=== PATIENT | female | born 1945 | race Caucasian/White ===

== ENCOUNTER 2016-11-02 14:12 | Inpatient (IN) | payer MEDICARE, OTHER ==
[2016-11-02] MEDS ORDERED: COLACE100 M1 PO (16:26)
[2016-11-02] MEDS ORDERED: PRILOSEC OTC20 M1 PO (16:27)
[2016-11-02 16:30] LABS: ABG CO2 ARTERIAL 17 mmol/L (21-27); ARTERIAL BLD GAS O2 SATURATION 95 % (95-98); ARTERIAL BLOOD GAS PCO2 24 mmHg (32-45); ARTERIAL PO2 65 mmHg (70-100); BICARBONATE 17 mmol/L (21-28); BLOOD GAS BASE EXCESS -5 mM/L (-/+3); PH 7.46 Units (7.35-7.45)
[2016-11-02 16:35] LABS: BASO % 0.1 % (0-2); HCT-HEMATOCRIT 31.8 % (34.0-49.0); HGB-HEMOGLOBIN 10.8 gm/dl (12.0-15.5); IMMATURE GRANULOCYTES ABSOLUTE 0.15 tho/cmm (0-0.03); LYMPH % 2.6 % (20-45); LYMPH ABSOLUTE COUNT 0.4 tho/cmm (0.8-4.5); MCH (MEAN CORPUSCULAR HGB) 30.8 pg (28.0-32.0); MCV (MEAN CELL VOLUME) 90.6 fl (82.0-96.0); MEAN PLATELET VOLUME 9.5 cmc (9.4-12.4); MONO % 2.2 % (0-12); MONOCYTE ABSOLUTE COUNT 0.3 tho/cmm (0.0-1.2); NEUTROPHIL ABSOLUTE COUNT 14.1 tho/cmm (1.6-8.0); NEUTROPHIL-AUTOMATED 14.1 tho/cmm (1.6-8.0); NEUTROPHILS % 94.1 % (40-80); PLATELET COUNT 130 tho/cmm (150-450); RED BLOOD COUNT 3.51 mil/cmm (4.00-5.20); RED CELL DISTRIBUTION WIDTH 13.6 % (12.4-16.4)
[2016-11-02 16:36] LABS: INR 1.5 INR (0.9-1.1); PROTHROMBIN TIME 17.7 SECONDS (9.0-13.6)
[2016-11-02 16:49] LABS: ALB/GLOB RATIO 0.7 (0.8-2.0); ALBUMIN 2.2 g/dl (3.5-5.0); ALKALINE PHOSPHATASE 114 U/L (33-138); ALT/SGPT 14 U/L (12-78); ANION GAP 17 mmol/L (0-20); AST/SGOT 25 U/L (10-40); BILIRUBIN,TOTAL 1.4 mg/dl (0-1.5); BLOOD UREA NITROGEN 29 mg/dl (6-24); CALCIUM 7.1 mg/dl (8.5-10.5); CARBON DIOXIDE-VENOUS 19 mmol/L (22-32); CHLORIDE 108 mmol/l (96-110); CREATININE 2.58 mg/dl (0.50-1.10); GLUCOSE 267 mg/dL (70-110); POTASSIUM 3.1 mmol/L (3.7-5.1); SODIUM 141 mmol/L (135-145); eGFR VALUE FOR BLACK 21 mL/Min
[2016-11-02 17:10] LABS: PROCALCITONIN >170.00 ng/ml (0.05-0.09)
[2016-11-02 18:06] LABS: ALB/GLOB RATIO 0.7 (0.8-2.0); ALBUMIN 2.2 g/dl (3.5-5.0); BILIRUBIN,DIRECT 0.8 mg/dl (0.0-0.3); BILIRUBIN,INDIRECT 0.6 mg/dL (0.0-1.0); BILIRUBIN,TOTAL 1.4 mg/dl (0-1.5)
[2016-11-02 23:25] LABS: URINE BILIRUBIN NEGATIVE (NEG); URINE BLOOD LARGE (NEG); URINE GLUCOSE (UA) NEGATIVE (NEG); URINE KETONE NEGATIVE (NEG); URINE LEUKOCYTE ESTERASE POSITIVE (NEG); URINE NITRITE NEGATIVE (NEG); URINE PROTEIN MODERATE (NEG)
[2016-11-02 23:29] LABS: URINE APPEARANCE CLOUDY; URINE COLOR YELLOW
[2016-11-02 23:39] LABS: URINE AMORPHOUS 1+; URINE BACTERIA 1+; URINE WBC FULL FIELD /[HPF] (0-5)
[2016-11-03 00:09] LABS: MAGNESIUM 1.1 mg/dl (1.3-2.6); POTASSIUM 3.3 mmol/L (3.7-5.1)
[2016-11-03 07:39] LABS: HCT-HEMATOCRIT 36.3 % (34.0-49.0); HGB-HEMOGLOBIN 12.3 gm/dl (12.0-15.5); MCH (MEAN CORPUSCULAR HGB) 31.1 pg (28.0-32.0); MCHC MEAN CORPUSCULAR HGB CONC 33.9 % (32.0-36.0); MCV (MEAN CELL VOLUME) 91.7 fl (82.0-96.0); MEAN PLATELET VOLUME 9.7 cmc (9.4-12.4); NEUTROPHIL-AUTOMATED 10.6 tho/cmm (1.6-8.0); PLATELET COUNT 126 tho/cmm (150-450); RED BLOOD COUNT 3.96 mil/cmm (4.00-5.20); RED CELL DISTRIBUTION WIDTH 13.6 % (12.4-16.4); WHITE BLOOD COUNT 11.4 tho/cmm (4.0-10.0)
[2016-11-03 07:41] LABS: ABG CO2 ARTERIAL 16 mmol/L (21-27); ARTERIAL BLD GAS O2 SATURATION 91 % (95-98); ARTERIAL PO2 66 mmHg (70-100); BICARBONATE 15 mmol/L (21-28); BLOOD GAS BASE EXCESS -12 mM/L (-/+3)
[2016-11-03 07:43] LABS: ARTERIAL BLOOD GAS PCO2 34 mmHg (32-45); PH 7.25 Units (7.35-7.45)
[2016-11-03 08:03] LABS: ALB/GLOB RATIO 0.6 (0.8-2.0); ALBUMIN 2.3 g/dl (3.5-5.0); ALKALINE PHOSPHATASE 115 U/L (33-138); ALT/SGPT 18 U/L (12-78); ANION GAP 20 mmol/L (0-20); BILIRUBIN,TOTAL 1.1 mg/dl (0-1.5); BLOOD UREA NITROGEN 31 mg/dl (6-24); CALCIUM 7.3 mg/dl (8.5-10.5); CARBON DIOXIDE-VENOUS 15 mmol/L (22-32); CHLORIDE 116 mmol/l (96-110); CREATININE 2.59 mg/dl (0.50-1.10); MAGNESIUM 1.4 mg/dl (1.3-2.6); POTASSIUM 4.6 mmol/L (3.7-5.1); SODIUM 146 mmol/L (135-145); eGFR VALUE FOR BLACK 21 mL/Min
[2016-11-03 08:06] LABS: AST/SGOT 41 U/L (10-40); GLUCOSE 121 mg/dL (70-110)
[2016-11-03 08:15] LABS: BAND % 43 % (0-20); BAND ABSOLUTE COUNT 4.9 tho/cmm (0-2.0)
[2016-11-04 04:46] LABS: BLOOD UREA NITROGEN 28 mg/dl (6-24); CALCIUM 6.8 mg/dl (8.5-10.5); CARBON DIOXIDE-VENOUS 21 mmol/L (22-32); CHLORIDE 113 mmol/l (96-110); GLUCOSE 138 mg/dL (70-110); MAGNESIUM 1.5 mg/dl (1.3-2.6); PHOSPHOROUS 2.8 mg/dl (2.5-4.9); SODIUM 144 mmol/L (135-145)
[2016-11-04 05:19] LABS: HCT-HEMATOCRIT 29.2 % (34.0-49.0); HGB-HEMOGLOBIN 9.8 gm/dl (12.0-15.5); MCH (MEAN CORPUSCULAR HGB) 30.7 pg (28.0-32.0); MCHC MEAN CORPUSCULAR HGB CONC 33.6 % (32.0-36.0); MCV (MEAN CELL VOLUME) 91.5 fl (82.0-96.0); NEUTROPHIL-AUTOMATED 14.5 tho/cmm (1.6-8.0); RED BLOOD COUNT 3.19 mil/cmm (4.00-5.20); WHITE BLOOD COUNT 16.6 tho/cmm (4.0-10.0)
[2016-11-04 05:21] LABS: ANION GAP 14 mmol/L (0-20); C-REACTIVE PROTEIN 26.8 mg/dl (0-0.9); CREATININE 1.82 mg/dl (0.50-1.10); POTASSIUM 3.5 mmol/L (3.7-5.1); eGFR VALUE FOR BLACK 32 mL/Min
[2016-11-04 06:21] LABS: PROCALCITONIN 151.92 ng/ml (0.05-0.09)
[2016-11-04 07:25] LABS: PLATELET COUNT 66 tho/cmm (150-450)
[2016-11-04 07:27] LABS: BAND % 21 % (0-20); BAND ABSOLUTE COUNT 3.5 tho/cmm (0-2.0)
[2016-11-04 07:28] LABS: WBC MORPHOLOGY DOHLE BODIES
[2016-11-05 04:39] LABS: BASO % 0.2 % (0-2); EOS % 1.2 % (0-7); EOSINOPHIL ABSOLUTE COUNT 0.2 tho/cmm (0.0-0.7); HCT-HEMATOCRIT 30.7 % (34.0-49.0); HGB-HEMOGLOBIN 10.7 gm/dl (12.0-15.5); IMMATURE GRANULOCYTES ABSOLUTE 0.07 tho/cmm (0-0.03); IMMATURE GRANULOCYTES PERCENT 0.5 % (0-0.3); LYMPH % 11.6 % (20-45); LYMPH ABSOLUTE COUNT 1.8 tho/cmm (0.8-4.5); MCH (MEAN CORPUSCULAR HGB) 30.9 pg (28.0-32.0); MCHC MEAN CORPUSCULAR HGB CONC 34.9 % (32.0-36.0); MCV (MEAN CELL VOLUME) 88.7 fl (82.0-96.0); MEAN PLATELET VOLUME 10.4 cmc (9.4-12.4); MONOCYTE ABSOLUTE COUNT 0.5 tho/cmm (0.0-1.2); NEUTROPHILS % 83.5 % (40-80); PLATELET COUNT 95 tho/cmm (150-450); RED BLOOD COUNT 3.46 mil/cmm (4.00-5.20); RED CELL DISTRIBUTION WIDTH 13.7 % (12.4-16.4); WHITE BLOOD COUNT 15.5 tho/cmm (4.0-10.0)
[2016-11-05 05:24] LABS: CHLORIDE 112 mmol/l (96-110); SODIUM 146 mmol/L (135-145)
[2016-11-05 05:28] LABS: ALBUMIN 2.2 g/dl (3.5-5.0); ANION GAP 15 mmol/L (0-20); BLOOD UREA NITROGEN 24 mg/dl (6-24); C-REACTIVE PROTEIN 15.2 mg/dl (0-0.9); CALCIUM 7.3 mg/dl (8.5-10.5); CARBON DIOXIDE-VENOUS 22 mmol/L (22-32); CREATININE 1.43 mg/dl (0.50-1.10); GLUCOSE 98 mg/dL (70-110); PHOSPHOROUS 1.9 mg/dl (2.5-4.9); eGFR VALUE FOR BLACK 43 mL/Min
[2016-11-06 06:31] LABS: BASO % 0.4 % (0-2); EOS % 5.7 % (0-7); EOSINOPHIL ABSOLUTE COUNT 0.4 tho/cmm (0.0-0.7); HCT-HEMATOCRIT 31.6 % (34.0-49.0); HGB-HEMOGLOBIN 10.7 gm/dl (12.0-15.5); IMMATURE GRANULOCYTES ABSOLUTE 0.04 tho/cmm (0-0.03); IMMATURE GRANULOCYTES PERCENT 0.5 % (0-0.3); LYMPH % 18.3 % (20-45); LYMPH ABSOLUTE COUNT 1.4 tho/cmm (0.8-4.5); MCH (MEAN CORPUSCULAR HGB) 30.1 pg (28.0-32.0); MCHC MEAN CORPUSCULAR HGB CONC 33.9 % (32.0-36.0); MCV (MEAN CELL VOLUME) 88.8 fl (82.0-96.0); MEAN PLATELET VOLUME 10.4 cmc (9.4-12.4); MONO % 6.1 % (0-12); MONOCYTE ABSOLUTE COUNT 0.5 tho/cmm (0.0-1.2); NEUTROPHIL ABSOLUTE COUNT 5.3 tho/cmm (1.6-8.0); NEUTROPHIL-AUTOMATED 5.3 tho/cmm (1.6-8.0); PLATELET COUNT 86 tho/cmm (150-450); RED BLOOD COUNT 3.56 mil/cmm (4.00-5.20); RED CELL DISTRIBUTION WIDTH 13.7 % (12.4-16.4)
[2016-11-06 06:35] LABS: CALCIUM 7.7 mg/dl (8.5-10.5); CHLORIDE 112 mmol/l (96-110); POTASSIUM 3.6 mmol/L (3.7-5.1); SODIUM 143 mmol/L (135-145)
[2016-11-06 06:43] LABS: ALBUMIN 2.2 g/dl (3.5-5.0); ANION GAP 15 mmol/L (0-20); BLOOD UREA NITROGEN 17 mg/dl (6-24); CARBON DIOXIDE-VENOUS 20 mmol/L (22-32); CREATININE 1.17 mg/dl (0.50-1.10); GLUCOSE 134 mg/dL (70-110); MAGNESIUM 1.9 mg/dl (1.3-2.6); PHOSPHOROUS 2.1 mg/dl (2.5-4.9); WHITE BLOOD COUNT 7.6 tho/cmm (4.0-10.0); eGFR VALUE FOR BLACK 55 mL/Min
[2016-11-06 06:48] LABS: C-REACTIVE PROTEIN 7.5 mg/dl (0-0.9)
[2016-11-06 07:02] LABS: PROCALCITONIN 29.56 ng/ml (0.05-0.09)
[2016-11-07 05:19] LABS: BASO % 0.5 % (0-2); EOS % 7.2 % (0-7); EOSINOPHIL ABSOLUTE COUNT 0.5 tho/cmm (0.0-0.7); HCT-HEMATOCRIT 31.3 % (34.0-49.0); HGB-HEMOGLOBIN 10.5 gm/dl (12.0-15.5); IMMATURE GRANULOCYTES ABSOLUTE 0.05 tho/cmm (0-0.03); IMMATURE GRANULOCYTES PERCENT 0.8 % (0-0.3); LYMPH % 21.3 % (20-45); LYMPH ABSOLUTE COUNT 1.4 tho/cmm (0.8-4.5); MCH (MEAN CORPUSCULAR HGB) 30.2 pg (28.0-32.0); MCHC MEAN CORPUSCULAR HGB CONC 33.5 % (32.0-36.0); MCV (MEAN CELL VOLUME) 89.9 fl (82.0-96.0); MEAN PLATELET VOLUME 10.4 cmc (9.4-12.4); MONO % 6.6 % (0-12); MONOCYTE ABSOLUTE COUNT 0.4 tho/cmm (0.0-1.2); NEUTROPHIL ABSOLUTE COUNT 4.1 tho/cmm (1.6-8.0); NEUTROPHIL-AUTOMATED 4.1 tho/cmm (1.6-8.0); NEUTROPHILS % 63.6 % (40-80); PLATELET COUNT 104 tho/cmm (150-450); RED BLOOD COUNT 3.48 mil/cmm (4.00-5.20); RED CELL DISTRIBUTION WIDTH 13.6 % (12.4-16.4); WHITE BLOOD COUNT 6.4 tho/cmm (4.0-10.0)
[2016-11-07 06:09] LABS: PROCALCITONIN 14.77 ng/ml (0.05-0.09)
[2016-11-08 05:24] LABS: C-REACTIVE PROTEIN 2.5 mg/dl (0-0.9)
[2016-11-08 06:03] LABS: PROCALCITONIN 6.97 ng/ml (0.05-0.09)
[2016-11-09 06:21] LABS: BASO % 0.2 % (0-2); EOS % 6.4 % (0-7); EOSINOPHIL ABSOLUTE COUNT 0.6 tho/cmm (0.0-0.7); HCT-HEMATOCRIT 34.2 % (34.0-49.0); HGB-HEMOGLOBIN 11.7 gm/dl (12.0-15.5); IMMATURE GRANULOCYTES ABSOLUTE 0.17 tho/cmm (0-0.03); IMMATURE GRANULOCYTES PERCENT 1.9 % (0-0.3); LYMPH % 18.1 % (20-45); LYMPH ABSOLUTE COUNT 1.7 tho/cmm (0.8-4.5); MCH (MEAN CORPUSCULAR HGB) 30.7 pg (28.0-32.0); MCHC MEAN CORPUSCULAR HGB CONC 34.2 % (32.0-36.0); MCV (MEAN CELL VOLUME) 89.8 fl (82.0-96.0); MEAN PLATELET VOLUME 8.8 cmc (9.4-12.4); MONO % 6.6 % (0-12); MONOCYTE ABSOLUTE COUNT 0.6 tho/cmm (0.0-1.2); NEUTROPHIL ABSOLUTE COUNT 6.1 tho/cmm (1.6-8.0); NEUTROPHIL-AUTOMATED 6.1 tho/cmm (1.6-8.0); NEUTROPHILS % 66.8 % (40-80); RED BLOOD COUNT 3.81 mil/cmm (4.00-5.20); RED CELL DISTRIBUTION WIDTH 13.3 % (12.4-16.4); WHITE BLOOD COUNT 9.1 tho/cmm (4.0-10.0)
[2016-11-09 06:33] LABS: ANION GAP 8 mmol/L (0-20); BLOOD UREA NITROGEN 8 mg/dl (6-24); C-REACTIVE PROTEIN 1.8 mg/dl (0-0.9); CALCIUM 8.7 mg/dl (8.5-10.5); CARBON DIOXIDE-VENOUS 29 mmol/L (22-32); CHLORIDE 108 mmol/l (96-110); CREATININE 1.07 mg/dl (0.50-1.10); GLUCOSE 146 mg/dL (70-110); POTASSIUM 4.2 mmol/L (3.7-5.1); SODIUM 141 mmol/L (135-145); eGFR VALUE FOR BLACK 61 mL/Min
[2016-11-09 07:36] LABS: PROCALCITONIN 3.72 ng/ml (0.05-0.09)
[2016-11-09] MEDS ORDERED: NYSTOP60 GM TOP (11:45)
[2016-11-09] MEDS ORDERED: CEFTRIAXON1000 MG/VI IV (11:45)
[2016-11-09] MEDS ORDERED: ZOVIRAX30 GM TOP (11:46)
[2016-11-09] MEDS ORDERED: ASPIRIN EC81 MG PO (11:46)
[2016-11-09] MEDS ORDERED: TYLENOL325 M2 PO (11:46)
[2016-11-09] MEDS ORDERED: MIRALAX17 G2 PO (11:51)
[2016-11-09] MEDS ORDERED: CULTURELLE1 EAC1 PO (11:51)
[2016-11-09] MEDS ORDERED: GLUCOPHAGE1000 M1 PO (11:52)
[2016-11-09] MEDS ORDERED: OMEPRAZOLE40 M2 PO (11:52)
[2016-11-09 13:01] LABS: PLATELET COUNT 212 tho/cmm (150-450)
[2016-12-21] MEDS ORDERED: PRILOSEC OTC20 M1 PO (12:02)
[2016-12-21] MEDS ORDERED: NORVASC5 M2 PO (12:03)
[2016-12-21] MEDS ORDERED: BUSPIRONE HCL10 M2 PO (12:03)
[2016-12-21] MEDS ORDERED: ATIVAN0.5 M1 PO (12:03)
[2016-12-21] MEDS ORDERED: ZOLOFT50 M1 PO (12:04)
[2016-12-21] MEDS ORDERED: TRAZODONE HCL50 M1 PO (12:04)
[2016-12-21] MEDS ORDERED: NYSTATIN15 G2 TP (12:05)
[2016-12-21] MEDS ORDERED: MACROBID 100 M100 M1 PO (12:05)
== END 2016-11-09 16:15 | disposition home health service (06) | DRG 871 ==
LOC: CCU 14:12 → PCUA 11-04 16:55
PROVIDERS: Family Medicine; Internal Medicine Critical Care Medicine; Internal Medicine Infectious Disease; Physician Assistant; Registered Nurse; ADMIT Internal Medicine
PROC: 3E0F7GC Introduction of Other Therapeutic Substance into Respiratory Tract, Via Natural or Artificial Opening (ICD-10-PCS; principal; 2016-11-02)
PROC: 02HV33Z Insertion of Infusion Device into Superior Vena Cava, Percutaneous Approach (ICD-10-PCS; principal; 2016-11-02)
PROC: B548ZZA Ultrasonography of Superior Vena Cava, Guidance (ICD-10-PCS; principal; 2016-11-02)
PROC: B246ZZZ Ultrasonography of Right and Left Heart (ICD-10-PCS; principal; 2016-11-02)
DX: A41.9 Sepsis, unspecified organism (principal); J69.0 Pneumonitis due to inhalation of food and vomit; R65.21 Severe sepsis with septic shock; N17.9 Acute kidney failure, unspecified; I24.8 Other forms of acute ischemic heart disease; N13.30 Unspecified hydronephrosis; I13.10 Hypertensive heart and chronic kidney disease without heart failure, with stage 1 through stage 4 chronic kidney disease, or unspecified chronic kidney disease; E11.65 Type 2 diabetes mellitus with hyperglycemia; E78.5 Hyperlipidemia, unspecified; E87.6 Hypokalemia; F03.90 Unspecified dementia, unspecified severity, without behavioral disturbance, psychotic disturbance, mood disturbance, and anxiety; F41.9 Anxiety disorder, unspecified; E11.22 Type 2 diabetes mellitus with diabetic chronic kidney disease; N18.9 Chronic kidney disease, unspecified
CPT/HCPCS: C1729; C1751; C1769; C1894; J0696; J1650; J1815; J1956; J2060; J2175; J2250; J2405; J2543; J2997; J3010; J3370; J3475; J7030; J7040; J7050; P9045; Q9967

== ENCOUNTER 2016-12-23 07:45 | Day surgery (SDC) | payer MEDICARE, OTHER ==
[~2016-12-23 07:45] MED LIST: ASPIRIN EC81 MG PO; ATIVAN0.5 M1 PO; BUSPIRONE HCL10 M2 PO; CEFTRIAXON1000 MG/VI IV; COLACE100 M1 PO; CULTURELLE1 EAC1 PO; GLUCOPHAGE1000 M1 PO; MACROBID 100 M100 M1 PO; MIRALAX17 G2 PO; NORVASC5 M2 PO; NYSTATIN15 G2 TP; NYSTOP60 GM TOP; OMEPRAZOLE40 M2 PO; PRILOSEC OTC20 M1 PO; TRAZODONE HCL50 M1 PO; TYLENOL325 M2 PO; ZOLOFT50 M1 PO; ZOVIRAX30 GM TOP
[2016-12-23 09:13] LABS: URINE APPEARANCE CLEAR; URINE COLOR YELLOW; URINE LEUKOCYTE ESTERASE POSITIVE (NEG); URINE SPECIFIC GRAVITY 1.025 (1.003-1.030)
[2016-12-23 09:14] LABS: URINE BILIRUBIN NEGATIVE (NEG); URINE BLOOD MODERATE (NEG); URINE GLUCOSE (UA) NEGATIVE (NEG); URINE KETONE NEGATIVE (NEG); URINE NITRITE NEGATIVE (NEG); URINE PROTEIN MODERATE (NEG)
[2016-12-23 09:16] LABS: URINE BACTERIA 1+; URINE EPITHELIAL CELLS 0-2 /[HPF] (0-10)
[2016-12-23 09:17] LABS: URINE MUCUS 1+
[2016-12-23 09:22] LABS: INR 0.9 INR (0.9-1.1); PROTHROMBIN TIME 10.1 SECONDS (9.0-13.6)
== END 2016-12-23 13:10 ==
LOC: SRG 07:45 → SHSC 07:48 → ORW 10:28 → PACU 11:31 → SHSC 11:50
PROVIDERS: Urology
PROC: 0TP5X0Z Removal of Drainage Device from Kidney, External Approach (ICD-10-PCS; principal; 2016-12-23)
PROC: 0TJB8ZZ Inspection of Bladder, Via Natural or Artificial Opening Endoscopic (ICD-10-PCS; 2016-12-23)
DX: N20.1 Calculus of ureter (principal); I10 Essential (primary) hypertension; E11.9 Type 2 diabetes mellitus without complications; F41.9 Anxiety disorder, unspecified; F32.9 Major depressive disorder, single episode, unspecified; K44.9 Diaphragmatic hernia without obstruction or gangrene; K21.9 Gastro-esophageal reflux disease without esophagitis; N17.9 Acute kidney failure, unspecified; D64.9 Anemia, unspecified; E78.5 Hyperlipidemia, unspecified; G47.00 Insomnia, unspecified; N39.0 Urinary tract infection, site not specified; Z79.2 Long term (current) use of antibiotics; Z79.82 Long term (current) use of aspirin; Z79.899 Other long term (current) drug therapy; Z87.442 Personal history of urinary calculi; Z80.0 Family history of malignant neoplasm of digestive organs; Z98.890 Other specified postprocedural states
CPT/HCPCS: C1726; C1769; J1956; Q9967